=== PATIENT | male | born 1955 | race Two or more races ===

== ENCOUNTER 2023-11-04 07:03 | Inpatient (IN) | payer BC, MEDICAID ==
[~2023-11-04] VITALS: Ht 175.3 cm; Wt 87.9 kg
[~2023-11-04 07:03] MED LIST: ATEN50TA19 PO; HYDR-4798 PO; LEVO137T3 PO; METH-1181 PO; NAP500T PO; POTA10TA51 PO
[2023-11-04] MEDS: ceFAZolin 2 GM/D5W100ml 100 ML IV ONE (07:15)
[2023-11-04] MEDS: TRANEXAMIC ACID 20 ML ONE (07:19)
[2023-11-04] MEDS: LIDOCAINE 2% JELLY 11ml (GLYDO) ONE (07:20)
[2023-11-04] MEDS ORDERED: ROCURONIUM 10MG/ML 10ML VIAL IV ONE (07:37)
[2023-11-04] MEDS ORDERED: GLYCOPYRROLATE 0.2 MG/ML 1ML VIAL ONE (07:37)
[2023-11-04] MEDS ORDERED: ONDANSETRON HCL 4 MG/2 ML VIAL ONE (07:37)
[2023-11-04] MEDS ORDERED: DexAMETHasone SOD PHOS 10MG/1ML VIAL INJ ONE (07:37)
[2023-11-04] MEDS ORDERED: PROPOFOL 10 MG/ML 20 ML IV ONE ×2 (07:38→15:50)
[2023-11-04] MEDS ORDERED: KETAMINE 50mg/ML 1ml syringe ONE (07:39)
[2023-11-04] MEDS ORDERED: fentaNYL CITRATE 100 MCG/2 ML VL ONE (07:39)
[2023-11-04] MEDS: MAGNESIUM SULFATE 1GM/100ML 200 ML IV ONE (07:44)
[2023-11-04] MEDS: LIDOCAINE 4MG/ML IV SOLN 500 ML IV ONE (07:44)
[2023-11-04] MEDS: LIDOCAINE 2%HCL (LOCAL ANESTH.) INJ 10ml MDV ONE (07:44)
[2023-11-04] MEDS: ACETAMINOPHEN IV 1000 MG/100ML (10MG/ML) IV ONE (08:00)
[2023-11-04] MEDS: oxyCODONE ER 20 MG TAB PO ONE (10:31)
[2023-11-04] MEDS: GABAPENTIN 300 MG CAP PO ONE (10:31)
[2023-11-04] MEDS: LIDOCAINE W/ EPINEPHRINE 1% 20ML VIAL ONE (12:09)
[2023-11-04] MEDS ORDERED: ePHEDrine SULFATE 50 MG/ML AMP ONE ×2 (14:38→15:14)
[2023-11-04 15:26] LABS: Hematocrit 35.5 % (41.0-53.0); Hemoglobin 12.1 g/dL (13.5-17.5)
[2023-11-04] MEDS ORDERED: ceFAZolin 1GM VL ONE (16:00)
[2023-11-04] MEDS ORDERED: ONDANSETRON HCL 4 MG/2 ML VIAL IV PRN ×2 (16:15→17:15)
[2023-11-04] MEDS ORDERED: ACETAMINOPHEN 325 MG TAB PO PRN (16:15)
[2023-11-04] MEDS ORDERED: MORPHINE SULFATE INJ 2 MG/ml SYRG IV PRN (16:15)
[2023-11-04] MEDS ORDERED: NITROGLYCERIN 0.4 MG SL TAB SL PRN (16:15)
[2023-11-04] MEDS: NEOMYCIN-BACITRACIN-POLYM 15GM TOP OINT TOP ONE (16:35)
[2023-11-04 16:56] VITALS: O2SAT 96
[2023-11-04] MEDS ORDERED: ePHEDrine SULFATE 50 MG/ML AMP IV PRN (17:15)
[2023-11-04] MEDS ORDERED: HYDROmorphone HCL 2 MG/ML VL/or syr IV PRN (17:15)
[2023-11-04] MEDS ORDERED: LABETALOL HCL 5 MG/ML 4ML SYRINGE IV PRN (17:15)
[2023-11-04] MEDS ORDERED: MORPHINE SULFATE 4 MG/ML SYR/VIAL IV PRN (17:15)
[2023-11-04] MEDS ORDERED: MIDAZOLAM HCL 2MG/2ML 2ml VIAL (1mg/ml) IV PRN (17:15)
[2023-11-04 17:33] LABS: Basophils # (auto) 0 10 ^3/uL (0-0.2); Basophils % (auto) 0.4 % (0.0-2.0); Eosinophils # (auto) 0 10 ^3/uL (0-0.8); Eosinophils % (auto) 0.1 % (0.0-7.0); Hematocrit 35.2 % (41.0-53.0); Hemoglobin 12.1 g/dL (13.5-17.5); Lymphocytes % (auto) 9.5 % (10.0-50.0); Mean Corpuscular Hemoglobin 30.9 pg (28.0-32.0); Mean Corpuscular Hgb Conc. 34.3 g/dL (32.0-36.0); Mean Corpuscular Volume 90.2 fL (80.0-100.0); Monocytes # (auto) 0.1 10 ^3/uL (0-1.3); Monocytes % (auto) 0.9 % (0.0-12.0); Neutrophils # (auto) 9.6 10 ^3/uL (1.6-8.6); Neutrophils % (auto) 89.1 % (37.0-80.0); Red Cell Distribution Width 13.1 % (11.8-14.3); White Blood Cell 10.8 10^3/uL (4.4-10.8)
[2023-11-04 19:33] VITALS: BP 115/66; PULSE 88; RESP 18; TEMP 98; O2SAT 94
[2023-11-04 20:00] VITALS: BP 115/66; PULSE 85; PULSE 88; RESP 18; TEMP 98; O2SAT 94
[2023-11-04] MEDS: CYCLOBENZAPRINE HCL 10 MG TAB PO SCH (21:21)
[2023-11-04] MEDS: DOCUSATE SOD 100 MG CAP PO SCH (21:21)
[2023-11-04] MEDS: ceFAZolin 1GM/50ML 50 ML IV SCH (21:21)
[2023-11-04] MEDS: D5W/SOD CHLO 0.9% 1,000 ML IV SCH (21:22)
[2023-11-04 22:00] VITALS: BP 109/60; PULSE 87; RESP 19; TEMP 98.1; O2SAT 94
[2023-11-05] VITALS (7 sets, daily range): BP systolic 103–128; BP diastolic 48–63; PULSE 68–82; RESP 18–20; TEMP 98–98.9; O2SAT 94–98
[2023-11-05] MEDS: ceFAZolin 1GM/50ML 50 ML IV SCH (05:32)
[2023-11-05] MEDS: LEVOTHYROXINE SODIUM 25 MCG TAB PO SCH (05:35)
[2023-11-05] MEDS: HYDROcodone-ACET 10/325MG TAB PO PRN (09:16)
[2023-11-05 11:45] LABS: Chloride 102 mmol/L (98-107); Potassium 3.1 mmol/L (3.5-5.1); Sodium 137 mmol/L (136-145)
[2023-11-05 11:46] LABS: Anion Gap 6 (5-15); Calcium 8.3 mg/dL (8.5-10.1); Carbon Dioxide 29 mmol/L (20-30)
[2023-11-05 11:51] LABS: BUN/Creatinine Ratio 14.5 (10.0-20.0); Blood Urea Nitrogen 12 mg/dL (9-23); Glucose 126 mg/dL (74-106)
[2023-11-05] MEDS ORDERED: ATENOLOL 50 MG TAB PO SCH (12:32)
[2023-11-06] VITALS (7 sets, daily range): BP systolic 93–116; BP diastolic 45–58; PULSE 74–91; RESP 16–18; TEMP 98–98.8; O2SAT 91–95
[2023-11-06] MEDS: ATENOLOL PO SCH (10:00)
[2023-11-06] MEDS: CHLORTHALIDONE PO SCH (10:00)
[2023-11-06] MEDS: MORPHINE SULFATE INJ 2 MG/ml SYRG IV PRN (10:03)
[2023-11-06 13:01] LABS: Basophils # (auto) 0 10 ^3/uL (0-0.2); Basophils % (auto) 0.2 % (0.0-2.0); Eosinophils # (auto) 0.1 10 ^3/uL (0-0.8); Eosinophils % (auto) 0.6 % (0.0-7.0); Hematocrit 24.9 % (41.0-53.0); Hemoglobin 8.5 g/dL (13.5-17.5); Lymphocytes # (auto) 1.5 10 ^3/uL (0.4-5.4); Lymphocytes % (auto) 10.5 % (10.0-50.0); Mean Corpuscular Hemoglobin 30.8 pg (28.0-32.0); Mean Corpuscular Hgb Conc. 34.3 g/dL (32.0-36.0); Mean Corpuscular Volume 89.7 fL (80.0-100.0); Monocytes % (auto) 7.3 % (0.0-12.0); Neutrophils # (auto) 11.6 10 ^3/uL (1.6-8.6); Neutrophils % (auto) 81.4 % (37.0-80.0); Nucleated Red Blood Cells % 0.1 %; Red Blood Cells 2.77 10^6/uL (4.5-5.90); White Blood Cell 14.3 10^3/uL (4.4-10.8)
[2023-11-06 13:29] LABS: Alanine Aminotransferase 21 U/L (7-40); Albumin 3.2 g/dL (3.2-4.8); Alkaline Phosphatase 29 U/L (46-116); Anion Gap 4 (5-15); Aspartate Aminotransferase 46 U/L (13-40); BUN/Creatinine Ratio 7.4 (10.0-20.0); Bilirubin, Total 0.9 mg/dL (0.2-1.0); Blood Urea Nitrogen 6 mg/dL (9-23); Calcium 8.4 mg/dL (8.5-10.1); Carbon Dioxide 33 mmol/L (20-30); Chloride 100 mmol/L (98-107); Glucose 105 mg/dL (74-106); Potassium 3.1 mmol/L (3.5-5.1); Sodium 137 mmol/L (136-145); Total Protein 4.9 g/dL (5.7-8.2)
[2023-11-07] VITALS (7 sets, daily range): BP systolic 112–131; BP diastolic 42–69; PULSE 67–88; RESP 16–18; TEMP 98.2–99.1; O2SAT 90–96
[2023-11-07] MEDS: POTASSIUM CHL 20 Meq TABLET PO ONE (22:43)
[2023-11-08 05:00] VITALS: BP 125/68; PULSE 72; RESP 18; TEMP 98.5; O2SAT 96
[2023-11-08 08:00] VITALS: PULSE 75; PULSE 82; RESP 19; O2SAT 98
[2023-11-08 09:00] VITALS: BP 119/64; PULSE 82; RESP 19; TEMP 98.2; O2SAT 93
[2023-11-08 13:00] VITALS: BP 108/58; PULSE 66; RESP 17; TEMP 98.7; O2SAT 95
[2023-11-08 17:00] VITALS: BP 109/51; PULSE 69; RESP 18; TEMP 98.3; O2SAT 93
[2023-11-08 20:00] VITALS: PULSE 72; PULSE 74; RESP 16
[2023-11-09] VITALS (7 sets, daily range): BP systolic 107–119; BP diastolic 48–67; PULSE 69–83; RESP 16–20; TEMP 98.3–99; O2SAT 92–95
[2023-11-09 09:39] LABS: Basophils # (auto) 0.1 10 ^3/uL (0-0.2); Basophils % (auto) 0.4 % (0.0-2.0); Eosinophils # (auto) 0.2 10 ^3/uL (0-0.8); Eosinophils % (auto) 1.7 % (0.0-7.0); Hematocrit 28.6 % (41.0-53.0); Hemoglobin 9.9 g/dL (13.5-17.5); Lymphocytes # (auto) 1.9 10 ^3/uL (0.4-5.4); Mean Corpuscular Hgb Conc. 34.5 g/dL (32.0-36.0); Mean Corpuscular Volume 89.8 fL (80.0-100.0); Monocytes # (auto) 1.2 10 ^3/uL (0-1.3); Monocytes % (auto) 9.1 % (0.0-12.0); Neutrophils # (auto) 9.8 10 ^3/uL (1.6-8.6); Neutrophils % (auto) 74.8 % (37.0-80.0); Red Blood Cells 3.19 10^6/uL (4.5-5.90); White Blood Cell 13.2 10^3/uL (4.4-10.8)
[2023-11-09 10:01] LABS: Alanine Aminotransferase 15 U/L (7-40); Albumin 3.7 g/dL (3.2-4.8); Alkaline Phosphatase 41 U/L (46-116); Anion Gap 6 (5-15); Aspartate Aminotransferase 28 U/L (13-40); BUN/Creatinine Ratio 15.1 (10.0-20.0); Blood Urea Nitrogen 11 mg/dL (9-23); Calcium 9.1 mg/dL (8.5-10.1); Carbon Dioxide 30 mmol/L (20-30); Chloride 99 mmol/L (98-107); Glucose 95 mg/dL (74-106); Potassium 3.1 mmol/L (3.5-5.1); Sodium 135 mmol/L (136-145)
[2023-11-09 10:02] LABS: Bilirubin, Total 1.1 mg/dL (0.2-1.0)
[2023-11-10 04:52] VITALS: BP 111/54; PULSE 73; RESP 17; TEMP 98.7; O2SAT 94
[2023-11-10 07:30] VITALS: PULSE 69; PULSE 73; RESP 18; O2SAT 95
[2023-11-10 08:50] VITALS: BP 115/63; PULSE 73; RESP 19; TEMP 98.2; O2SAT 95
[2023-11-10 12:30] VITALS: BP 129/63; PULSE 82; RESP 19; TEMP 97.9; O2SAT 95
[2023-11-10 16:31] VITALS: BP 105/55; PULSE 74; RESP 18; TEMP 99.1; O2SAT 95
[2023-11-10 16:50] VITALS: BP 105/55; PULSE 85; RESP 18; TEMP 99.1; O2SAT 98
== END 2023-11-10 18:58 | disposition home health service (06) | DRG 460 ==
LOC: SUR 07:03 → TELE 16:10 → TELE-WESTW 19:15 → WEST WING 11-10 12:15
PROVIDERS: ADMIT Orthopaedic Surgery; ATTEND Internal Medicine
PROC: 01NB0ZZ Release Lumbar Nerve, Open Approach (ICD-10-PCS; 2023-11-04)
PROC: 00NY0ZZ Release Lumbar Spinal Cord, Open Approach (ICD-10-PCS; 2023-11-04)
PROC: 4A11X4G Monitoring of Peripheral Nervous Electrical Activity, Intraoperative, External Approach (ICD-10-PCS; 2023-11-04)
PROC: 0SG1071 Fusion of 2 or more Lumbar Vertebral Joints with Autologous Tissue Substitute, Posterior Approach, Posterior Column, Open Approach (ICD-10-PCS; principal; 2023-11-04 11:07)
DX: M48.061 Spinal stenosis, lumbar region without neurogenic claudication (principal); M54.16 Radiculopathy, lumbar region; M96.1 Postlaminectomy syndrome, not elsewhere classified; E03.9 Hypothyroidism, unspecified; G62.9 Polyneuropathy, unspecified; Z96.611 Presence of right artificial shoulder joint; I10 Essential (primary) hypertension; Z79.891 Long term (current) use of opiate analgesic; Z79.899 Other long term (current) drug therapy
CPT/HCPCS: 36415; 72100; 76000; 80048; 80053; 85014; 85018; 85025; 86850; 86900; 86901; 97110; 97116; 97163; 97530; G0378; J0131; J0690; J1100; J2001; J2405; J2704; J7042

== ENCOUNTER 2024-03-30 14:57 | Emergency (ER) | payer BC, MEDICAID ==
[~2024-03-30] VITALS: Ht 175.3 cm; Wt 80.1 kg
[~2024-03-30 14:57] MED LIST changes: +POTA-36 PO; -POTA10TA51 PO
[2024-03-30] MEDS: ONDANSETRON ODT 4 MG TAB PO ONE (19:19)
[2024-03-30] MEDS: HYDROcodone-ACET 5/325MG TAB PO ONE (19:19)
[2024-03-30 19:20] VITALS: BP 136/60; PULSE 57; RESP 18; TEMP 99; O2SAT 96
== END 2024-03-30 19:34 | disposition home or self-care (01) ==
LOC: ER 14:57
DX: S40.011A Contusion of right shoulder, initial encounter (principal); I10 Essential (primary) hypertension; Z98.890 Other specified postprocedural states; Z79.899 Other long term (current) drug therapy; W01.0XXA Fall on same level from slipping, tripping and stumbling without subsequent striking against object, initial encounter; Y93.89 Activity, other specified; Y92.89 Other specified places as the place of occurrence of the external cause; Y99.8 Other external cause status
CPT/HCPCS: 73030; 99283; Q0162